=== PATIENT | male | born 1995 | race Caucasian/White ===

== ENCOUNTER 2022-01-09 14:07 | Emergency (ER) | payer SELFPAY ==
[~2022-01-09] VITALS: Ht 182.9 cm; Wt 84.1 kg
[2022-01-09 14:10] VITALS: BP 117/72
== END 2022-01-09 17:15 | disposition left against medical advice (07) ==
LOC: M ED 14:07
DX: Z53.21 Procedure and treatment not carried out due to patient leaving prior to being seen by health care provider (principal)